=== PATIENT | female | born 1930 | race Hispanic/Latino ===

== ENCOUNTER 2017-05-26 15:45 | Outpatient (CLI) | payer MEDICARE, OTHER ==
--- NOTE | 2017-05-26 16:38 | XRay Report ---
Bilateral hips with pelvis. History: Hip pain. Findings: There is moderate arthritic changes noted in the superior-lateral aspect of right and left hip. No fracture, dislocation or soft tissue calcification. No lytic or blastic lesions at the pelvis. Suspected arthritic changes of the right and left sacroiliac joints. Impression: Arthritic changes right and left hip.
--- NOTE | 2017-05-26 16:40 | XRay Report ---
Lumbar spine 3 views: History: Back pain. 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 Old compression fracture of L2. This involves the superior endplate. Arthritic changes are noted at adjacent endplates. There is also noted narrowing of L3-4, L4-5 and L5-S1 with degenerative changes of the adjacent articular surfaces and facet joints. No acute fracture. Impression: Degenerative changes lumbar spine.
== END 2017-05-26 15:46 | disposition home or self-care (01) ==
LOC: SPVIMAG 15:45
DX: M47.896 Other spondylosis, lumbar region (principal); M41.86 Other forms of scoliosis, lumbar region; M48.56XA Collapsed vertebra, not elsewhere classified, lumbar region, initial encounter for fracture; M16.0 Bilateral primary osteoarthritis of hip; E78.00 Pure hypercholesterolemia, unspecified; F32.9 Major depressive disorder, single episode, unspecified; Z87.891 Personal history of nicotine dependence
CPT/HCPCS: 72100; 73521